=== PATIENT | male | born 1955 | race Caucasian/White ===

== ENCOUNTER 2020-06-05 12:13 | Inpatient (IN) ==
[2020-06-05] MEDS ORDERED: NS 0.9% 1000 ml BAG 1,000 ML IV ONE (12:38)
[2020-06-05 14:11] LABS: Hematocrit 41 % (42-52); Hemoglobin 13.8 g/dL (14.0-18.0); Mean Corpuscular HGB Conc 34 g/dL (31-36); Mean Corpuscular Hemoglobin 29 pg (27-31); Mean Corpuscular Volume 85 fL (80-94); Platelet Count 321 10^3/uL (150-450); Red Blood Count 4.81 10^6 /uL (4.18-5.48); Red Cell Distribution Width 14 % (10-15); White Blood Count 11.5 10^3/uL (3.5-10.8)
[2020-06-05 14:37] LABS: Albumin 3.4 g/dL (3.2-5.2); Albumin/Globulin Ratio 1.4 (1-3); BUN/Creatinine Ratio 23.9 (8-20); C Reactive Protein 18.02 mg/L (<8.01); Calcium 8.7 mg/dL (8.6-10.3); EGFR African American 223.7 (>60); EGFR Non-African American 184.9 (>60); Globulin 2.4 g/dL (2-4); Total Bilirubin 0.3 mg/dL (0.2-1.0); Total Protein 5.8 g/dL (6.4-8.9)
[2020-06-05 14:43] LABS: ABS Lymphocytes 0.8 10^3/ul (1.0-4.8); ABS Monocytes 0.3 10^3/ul (0-0.8); ABS Neutrophils 10.3 10^3/ul (1.5-7.7); Eosinophil % 0.2 %; Lymphocyte % 7.2 %
[2020-06-05 15:28] LABS: TSH Ultra Thyroid Stim Horm 1.1 mcIU/mL (0.34-5.60)
[2020-06-05] MEDS ORDERED: Dexamethasone IV 4 MG/ML VIAL 1 ml VIAL IV SLOW PU ONE (15:40)
[2020-06-05 16:01] LABS: Urine Appearance Clear; Urine Bilirubin Negative (Negative); Urine Blood Negative (Negative); Urine Color Straw; Urine Glucose Negative (Negative); Urine Ketones 1+ (Negative); Urine Nitrite Negative (Negative); Urine Protein Negative (Negative); Urine Specific Gravity 1.008 (1.010-1.030); Urine Urobilinogen Negative (Negative)
[2020-06-05 16:43] LABS: Erythrocyte Sed Rate 25 mm/Hr (0-19)
[2020-06-05 17:39] LABS: Potassium 4.2 mmol/L (3.5-5.0)
[2020-06-05] MEDS ORDERED: Ondansetron 4 mg VIAL 2 MG/ML 2 ml VIAL IV PRN (20:07)
[2020-06-05] MEDS ORDERED: Heparin 5000 UNITS/ML 1 mL VIAL SUBCUT SCH (22:00)
[2020-06-05 22:59] LABS: INR 1.08 (0.82-1.09)
[2020-06-06] MEDS: Dexamethasone IV 4 MG/ML VIAL 1 ml VIAL IV SLOW PU SCH ×3 (00:15→15:44)
[2020-06-06] MEDS: Heparin 5000 UNITS/ML 1 mL VIAL SUBCUT SCH ×3 (05:20→22:20)
[2020-06-06 05:40] LABS: ABS Lymphocytes 0.5 10^3/ul (1.0-4.8); ABS Monocytes 0.1 10^3/ul (0-0.8); ABS Neutrophils 8.7 10^3/ul (1.5-7.7); Eosinophil % 0.3 %; Hematocrit 40 % (42-52); Hemoglobin 13.5 g/dL (14.0-18.0); Lymphocyte % 5.6 %; Mean Corpuscular HGB Conc 34 g/dL (31-36); Mean Corpuscular Hemoglobin 29 pg (27-31); Mean Corpuscular Volume 85 fL (80-94); Mean Platelet Volume 7.9 fL (7.4-10.4); Nucleated Red Blood Cells % 0.1; Platelet Count 285 10^3/uL (150-450); Red Blood Count 4.67 10^6 /uL (4.18-5.48); Red Cell Distribution Width 14 % (10-15); White Blood Count 9.4 10^3/uL (3.5-10.8)
[2020-06-06 05:48] LABS: INR 1.11 (0.82-1.09)
[2020-06-06 05:57] LABS: Calcium 8.5 mg/dL (8.6-10.3); EGFR African American 248.5 (>60); EGFR Non-African American 205.4 (>60); Potassium 3.8 mmol/L (3.5-5.0)
[2020-06-06] MEDS ORDERED: Al Hydrox/Mg Hydrox/Simet LIQ 30 ML UDC PO PRN (13:30)
[2020-06-06] MEDS ORDERED: Magnesium Hydroxide LIQ 30 ML UDC PO PRN (13:31)
[2020-06-06] MEDS ORDERED: Magnesium Hydroxide LIQ 30 ML UDC ONE (13:32)
[2020-06-06] MEDS: Clotrimazole 1% CREAM 45 GM TOPICAL SCH (22:22)
[2020-06-07] MEDS: Dexamethasone IV 4 MG/ML VIAL 1 ml VIAL IV SLOW PU SCH ×3 (00:42→15:51)
[2020-06-07] MEDS: Heparin 5000 UNITS/ML 1 mL VIAL SUBCUT SCH ×3 (06:29→22:42)
[2020-06-07] MEDS: Clotrimazole 1% CREAM 45 GM TOPICAL SCH ×2 (09:39→22:46)
[2020-06-07 10:09] LABS: Hematocrit 41 % (42-52); Hemoglobin 13.7 g/dL (14.0-18.0); Mean Corpuscular HGB Conc 34 g/dL (31-36); Mean Corpuscular Hemoglobin 29 pg (27-31); Mean Corpuscular Volume 85 fL (80-94); Platelet Count 317 10^3/uL (150-450); Red Blood Count 4.77 10^6 /uL (4.18-5.48); Red Cell Distribution Width 14 % (10-15)
[2020-06-07 10:11] LABS: ABS Lymphocytes 0.7 10^3/ul (1.0-4.8); ABS Monocytes 0.4 10^3/ul (0-0.8); ABS Neutrophils 13.8 10^3/ul (1.5-7.7); Eosinophil % 0.1 %; Lymphocyte % 4.7 %
[2020-06-07 10:25] LABS: BUN/Creatinine Ratio 47.7 (8-20); Calcium 8.6 mg/dL (8.6-10.3); EGFR African American 235.5 (>60); EGFR Non-African American 194.6 (>60); Potassium 4.2 mmol/L (3.5-5.0)
[2020-06-08 05:35] LABS: Hematocrit 40 % (42-52); Hemoglobin 13.3 g/dL (14.0-18.0); Mean Corpuscular HGB Conc 34 g/dL (31-36); Mean Corpuscular Hemoglobin 29 pg (27-31); Mean Corpuscular Volume 85 fL (80-94); Mean Platelet Volume 8.4 fL (7.4-10.4); Platelet Count 340 10^3/uL (150-450); Red Blood Count 4.64 10^6 /uL (4.18-5.48); Red Cell Distribution Width 14 % (10-15); White Blood Count 14.9 10^3/uL (3.5-10.8)
[2020-06-08] MEDS: Heparin 5000 UNITS/ML 1 mL VIAL SUBCUT SCH ×3 (06:41→21:58)
[2020-06-08 09:04] LABS: ABS Lymphocytes 0.9 10^3/ul (1.0-4.8); ABS Monocytes 0.6 10^3/ul (0-0.8); ABS Neutrophils 13.4 10^3/ul (1.5-7.7)
[2020-06-08] MEDS: Clotrimazole 1% CREAM 45 GM TOPICAL SCH ×2 (10:01→21:53)
[2020-06-08] MEDS: Magnesium Hydroxide LIQ 30 ML UDC PO SCH ×2 (11:05→21:53)
[2020-06-08 17:16] LABS: Urine Appearance Cloudy; Urine Bilirubin Negative (Negative); Urine Blood 2+ (Negative); Urine Color Yellow; Urine Glucose Negative (Negative); Urine Ketones Negative (Negative); Urine Nitrite Negative (Negative); Urine Protein Negative (Negative); Urine Specific Gravity 1.023 (1.010-1.030); Urine Urobilinogen Negative (Negative)
[2020-06-08 17:27] LABS: Urine Bacteria Absent (Absent); Urine Red Blood Cell 2+(6-10/hpf) (Absent); Urine White Blood Cell Trace(0-5/hpf) (Absent)
[2020-06-09] MEDS: Heparin 5000 UNITS/ML 1 mL VIAL SUBCUT SCH ×3 (05:41→21:22)
[2020-06-09] MEDS: Clotrimazole 1% CREAM 45 GM TOPICAL SCH ×2 (11:06→21:22)
[2020-06-09] MEDS: Magnesium Hydroxide LIQ 30 ML UDC PO SCH ×2 (11:07→21:20)
[2020-06-09] MEDS ORDERED: Magnesium CITRATE LIQ 300 ML BTL PO ONE (17:54)
[2020-06-09] MEDS ORDERED: PEG 3000 GI LAVAGE 1 GALLON PO ONE (23:50)
[2020-06-10] MEDS: Heparin 5000 UNITS/ML 1 mL VIAL SUBCUT SCH (05:54)
[2020-06-10] MEDS: Clotrimazole 1% CREAM 45 GM TOPICAL SCH (08:55)
[2020-06-10] MEDS: Magnesium Hydroxide LIQ 30 ML UDC PO SCH (08:55)
[2020-06-10] MEDS ORDERED: Psyllium PAK PO SCH (09:00)
[2020-06-10 12:49] VITALS: BP 111/64
== END 2020-06-10 09:22 | DRG 552 ==
LOC: ED 12:13 → SSU 12:13
PROVIDERS: ADMIT Internal Medicine; ATTEND Internal Medicine

== ENCOUNTER 2020-06-10 13:02 | Inpatient (IN) ==
[2020-06-10] MEDS ORDERED: Lactulose 30 ml UDC PO PRN (14:39)
[2020-06-10] MEDS: Senna TAB 8.6 mg TAB PO SCH (22:40)
[2020-06-10] MEDS: Heparin 5000 UNITS/ML 1 mL VIAL SUBCUT SCH (22:42)
[2020-06-11 06:20] LABS: Albumin 3.4 g/dL (3.2-5.2); Calcium 8.3 mg/dL (8.6-10.3); Hematocrit 43 % (42-52); Hemoglobin 14.9 g/dL (14.0-18.0); Mean Corpuscular HGB Conc 35 g/dL (31-36); Mean Corpuscular Hemoglobin 29 pg (27-31); Mean Corpuscular Volume 85 fL (80-94); Mean Platelet Volume 8.2 fL (7.4-10.4); Platelet Count 306 10^3/uL (150-450); Potassium 4.5 mmol/L (3.5-5.0); Red Cell Distribution Width 14 % (10-15); Total Bilirubin 0.4 mg/dL (0.2-1.0); White Blood Count 11.7 10^3/uL (3.5-10.8)
[2020-06-11 06:26] LABS: Albumin/Globulin Ratio 1.4 (1-3); BUN/Creatinine Ratio 42.3 (8-20); EGFR African American 194.2 (>60); EGFR Non-African American 160.5 (>60); Globulin 2.5 g/dL (2-4); Total Protein 5.9 g/dL (6.4-8.9)
[2020-06-11 06:55] LABS: Platelet Morphology Large; Polychromasia 2+
[2020-06-11 06:56] LABS: ABS Basophils 0.1 10^3/ul (0-0.2); ABS Eosinophils 0.3 10^3/ul (0-0.6); ABS Lymphocytes 1.5 10^3/ul (1.0-4.8); ABS Monocytes 0.3 10^3/ul (0-0.8); ABS Neutrophils 9.5 10^3/ul (1.5-7.7); Eosinophil % 2.2 %; Lymphocyte % 13.1 %; Nucleated Red Blood Cells % 0.1
[2020-06-11] MEDS: Heparin 5000 UNITS/ML 1 mL VIAL SUBCUT SCH ×3 (08:59→21:31)
[2020-06-11] MEDS: Senna TAB 8.6 mg TAB PO SCH (21:31)
[2020-06-12] MEDS: Heparin 5000 UNITS/ML 1 mL VIAL SUBCUT SCH ×3 (06:03→20:42)
[2020-06-12] MEDS: Senna TAB 8.6 mg TAB PO SCH (20:45)
[2020-06-12] MEDS ORDERED: Nystatin TOP POWDER 15 GM BTL TOPICAL ONE (21:02)
[2020-06-13] MEDS: Heparin 5000 UNITS/ML 1 mL VIAL SUBCUT SCH ×3 (05:21→20:55)
[2020-06-13] MEDS: Nystatin TOP POWDER 15 GM BTL TOPICAL SCH ×2 (15:14→20:57)
[2020-06-13] MEDS: Senna TAB 8.6 mg TAB PO SCH (20:53)
[2020-06-14] MEDS: Heparin 5000 UNITS/ML 1 mL VIAL SUBCUT SCH ×3 (06:10→20:45)
[2020-06-14] MEDS: Nystatin TOP POWDER 15 GM BTL TOPICAL SCH ×2 (09:29→20:55)
[2020-06-14] MEDS: Senna TAB 8.6 mg TAB PO SCH (20:45)
[2020-06-15] MEDS: Heparin 5000 UNITS/ML 1 mL VIAL SUBCUT SCH ×3 (06:15→21:25)
[2020-06-15] MEDS: Nystatin TOP POWDER 15 GM BTL TOPICAL SCH ×2 (15:18→20:46)
[2020-06-15] MEDS: Magnesium Hydroxide LIQ 30 ML UDC PO PRN (17:10)
[2020-06-15] MEDS: Senna TAB 8.6 mg TAB PO SCH (20:43)
[2020-06-16] MEDS: Heparin 5000 UNITS/ML 1 mL VIAL SUBCUT SCH ×3 (05:25→20:39)
[2020-06-16] MEDS: Nystatin TOP POWDER 15 GM BTL TOPICAL SCH ×2 (12:29→20:39)
[2020-06-16] MEDS: Senna TAB 8.6 mg TAB PO SCH (20:38)
[2020-06-17] MEDS: Heparin 5000 UNITS/ML 1 mL VIAL SUBCUT SCH ×3 (05:15→21:35)
[2020-06-17] MEDS: Nystatin TOP POWDER 15 GM BTL TOPICAL SCH ×3 (10:15→20:45)
[2020-06-17] MEDS: Magnesium Hydroxide LIQ 30 ML UDC PO PRN (10:16)
[2020-06-17] MEDS: Senna TAB 8.6 mg TAB PO SCH (20:45)
[2020-06-18] MEDS: Heparin 5000 UNITS/ML 1 mL VIAL SUBCUT SCH ×3 (05:22→21:38)
[2020-06-18 06:34] LABS: Hematocrit 44 % (42-52); Hemoglobin 14.8 g/dL (14.0-18.0); Mean Corpuscular HGB Conc 34 g/dL (31-36); Mean Corpuscular Hemoglobin 29 pg (27-31); Mean Corpuscular Volume 85 fL (80-94); Mean Platelet Volume 7.3 fL (7.4-10.4); Platelet Count 329 10^3/uL (150-450); Red Blood Count 5.16 10^6 /uL (4.18-5.48); Red Cell Distribution Width 15 % (10-15); White Blood Count 10.1 10^3/uL (3.5-10.8)
[2020-06-18 06:50] LABS: Albumin 3.6 g/dL (3.2-5.2); Albumin/Globulin Ratio 1.3 (1-3); Calcium 9.3 mg/dL (8.6-10.3); EGFR African American 164.7 (>60); EGFR Non-African American 136.1 (>60); Globulin 2.7 g/dL (2-4); Potassium 4.9 mmol/L (3.5-5.0); Total Bilirubin 0.3 mg/dL (0.2-1.0); Total Protein 6.3 g/dL (6.4-8.9)
[2020-06-18 07:32] LABS: ABS Basophils 0.1 10^3/ul (0-0.2); ABS Eosinophils 0.2 10^3/ul (0-0.6); ABS Monocytes 0.7 10^3/ul (0-0.8); Eosinophil % 2.2 %; Lymphocyte % 20.1 %
[2020-06-18] MEDS: Nystatin TOP POWDER 15 GM BTL TOPICAL SCH ×2 (09:05→20:43)
[2020-06-18] MEDS: Senna TAB 8.6 mg TAB PO SCH (20:43)
[2020-06-19] MEDS: Heparin 5000 UNITS/ML 1 mL VIAL SUBCUT SCH ×3 (07:34→21:10)
[2020-06-19] MEDS: Nystatin TOP POWDER 15 GM BTL TOPICAL SCH ×2 (15:09→21:10)
[2020-06-19] MEDS: Senna TAB 8.6 mg TAB PO SCH (21:09)
[2020-06-20] MEDS: Heparin 5000 UNITS/ML 1 mL VIAL SUBCUT SCH ×3 (05:02→20:56)
[2020-06-20] MEDS: Nystatin TOP POWDER 15 GM BTL TOPICAL SCH ×2 (14:18→20:56)
[2020-06-20] MEDS: Senna TAB 8.6 mg TAB PO SCH (20:59)
[2020-06-21] MEDS: Heparin 5000 UNITS/ML 1 mL VIAL SUBCUT SCH ×3 (05:39→22:35)
[2020-06-21] MEDS: Nystatin TOP POWDER 15 GM BTL TOPICAL SCH ×2 (08:26→22:37)
[2020-06-21] MEDS: Senna TAB 8.6 mg TAB PO SCH (22:35)
[2020-06-22] MEDS: Heparin 5000 UNITS/ML 1 mL VIAL SUBCUT SCH ×2 (05:46→14:34)
[2020-06-22 05:49] VITALS: BP 110/61
[2020-06-22] MEDS: Nystatin TOP POWDER 15 GM BTL TOPICAL SCH (08:50)
== END 2020-06-22 15:00 | disposition short-term general hospital (02) | DRG 552 ==
LOC: PMRU 13:57
PROVIDERS: ADMIT Physical Medicine & Rehabilitation; ATTEND Physical Medicine & Rehabilitation

== ENCOUNTER 2020-06-22 15:40 | Inpatient (IN) ==
[2020-06-22] MEDS ORDERED: Senna TAB 8.6 mg TAB PO PRN ×2 (16:00→16:01)
[2020-06-22] MEDS ORDERED: Magnesium Hydroxide LIQ 30 ML UDC PO PRN ×2 (16:00→16:01)
[2020-06-22] MEDS: Enoxaparin 40 MG/0.4 ML SYR SUBCUT SCH (17:48)
[2020-06-22] MEDS: Lactulose 30 ml UDC PO SCH (21:20)
[2020-06-22] MEDS: Nystatin TOP POWDER 15 GM BTL TOPICAL SCH (21:20)
[2020-06-23] MEDS: Ondansetron 4 mg VIAL 2 MG/ML 2 ml VIAL IV PRN (01:56)
[2020-06-23 04:49] LABS: ABS Basophils 0.1 10^3/ul (0-0.2); ABS Eosinophils 0.4 10^3/ul (0-0.6); ABS Lymphocytes 1.8 10^3/ul (1.0-4.8); ABS Monocytes 0.6 10^3/ul (0-0.8); ABS Neutrophils 6.5 10^3/ul (1.5-7.7); Eosinophil % 4.1 %; Hematocrit 41 % (42-52); Hemoglobin 13.9 g/dL (14.0-18.0); Lymphocyte % 19.2 %; Mean Corpuscular HGB Conc 34 g/dL (31-36); Mean Corpuscular Hemoglobin 29 pg (27-31); Mean Corpuscular Volume 85 fL (80-94); Mean Platelet Volume 7.5 fL (7.4-10.4); Platelet Count 255 10^3/uL (150-450); Red Blood Count 4.78 10^6 /uL (4.18-5.48); Red Cell Distribution Width 15 % (10-15); White Blood Count 9.4 10^3/uL (3.5-10.8)
[2020-06-23 05:07] LABS: BUN/Creatinine Ratio 25.5 (8-20); Calcium 8.9 mg/dL (8.6-10.3); EGFR Non-African American 150.4 (>60); Potassium 4.6 mmol/L (3.5-5.0)
[2020-06-23] MEDS: Lactulose 30 ml UDC PO SCH ×3 (07:50→20:12)
[2020-06-23] MEDS: Nystatin TOP POWDER 15 GM BTL TOPICAL SCH ×2 (08:02→22:19)
[2020-06-23 12:27] LABS: Hematocrit 41 % (42-52); Hemoglobin 13.7 g/dL (14.0-18.0); Mean Corpuscular HGB Conc 33 g/dL (31-36); Mean Corpuscular Hemoglobin 29 pg (27-31); Mean Corpuscular Volume 85 fL (80-94); Mean Platelet Volume 7.3 fL (7.4-10.4); Platelet Count 263 10^3/uL (150-450); Red Cell Distribution Width 15 % (10-15); White Blood Count 7.5 10^3/uL (3.5-10.8)
[2020-06-23 12:43] LABS: Albumin 3.4 g/dL (3.2-5.2); Albumin/Globulin Ratio 1.4 (1-3); BUN/Creatinine Ratio 23.2 (8-20); EGFR African American 178.3 (>60); EGFR Non-African American 147.4 (>60); Globulin 2.4 g/dL (2-4); INR 1.01 (0.82-1.09); Potassium 4.3 mmol/L (3.5-5.0); Total Bilirubin 0.4 mg/dL (0.2-1.0); Total Protein 5.8 g/dL (6.4-8.9)
[2020-06-23 14:16] LABS: ABS Eosinophils 0.3 10^3/ul (0-0.6); ABS Lymphocytes 1.5 10^3/ul (1.0-4.8); ABS Monocytes 0.6 10^3/ul (0-0.8); ABS Neutrophils 5.1 10^3/ul (1.5-7.7); Eosinophil % 3.6 %; Lymphocyte % 19.9 %
[2020-06-23] MEDS: Enoxaparin 40 MG/0.4 ML SYR SUBCUT SCH (17:04)
[2020-06-24] MEDS: Lactulose 30 ml UDC PO SCH ×3 (08:55→22:04)
[2020-06-24] MEDS: Nystatin TOP POWDER 15 GM BTL TOPICAL SCH ×2 (08:55→22:45)
[2020-06-24] MEDS: Enoxaparin 40 MG/0.4 ML SYR SUBCUT SCH (17:52)
[2020-06-25] MEDS: Lactulose 30 ml UDC PO SCH ×3 (07:56→20:24)
[2020-06-25] MEDS: Nystatin TOP POWDER 15 GM BTL TOPICAL SCH ×2 (07:57→20:13)
[2020-06-25] MEDS: Enoxaparin 40 MG/0.4 ML SYR SUBCUT SCH (17:29)
[2020-06-26 05:28] LABS: Hematocrit 39 % (42-52); Hemoglobin 13.5 g/dL (14.0-18.0); Mean Corpuscular HGB Conc 34 g/dL (31-36); Mean Corpuscular Hemoglobin 29 pg (27-31); Mean Corpuscular Volume 85 fL (80-94); Mean Platelet Volume 7.2 fL (7.4-10.4); Platelet Count 227 10^3/uL (150-450); Red Blood Count 4.64 10^6 /uL (4.18-5.48); Red Cell Distribution Width 15 % (10-15); White Blood Count 6.9 10^3/uL (3.5-10.8)
[2020-06-26 05:51] LABS: BUN/Creatinine Ratio 42.3 (8-20); Calcium 8.5 mg/dL (8.6-10.3); EGFR African American 194.2 (>60); EGFR Non-African American 160.5 (>60)
[2020-06-26] MEDS: Lactated Ringers 1000 ml BAG 1,000 ML IV SCH ×2 (05:59→11:29)
[2020-06-26] MEDS ORDERED: Buffered Lidocaine 1% SYRIN 1 ml INTRADERM ONE (06:00)
[2020-06-26 06:26] LABS: ABS Basophils 0.1 10^3/ul (0-0.2); ABS Eosinophils 0.3 10^3/ul (0-0.6); ABS Lymphocytes 1.8 10^3/ul (1.0-4.8); ABS Monocytes 0.5 10^3/ul (0-0.8); ABS Neutrophils 4.2 10^3/ul (1.5-7.7); Eosinophil % 4.9 %; Lymphocyte % 25.6 %
[2020-06-26] MEDS: Lactulose 30 ml UDC PO SCH ×3 (07:16→21:19)
[2020-06-26] MEDS ORDERED: Phenylephrine IV 10 MG/ML 1 ml VIAL ONE (07:26)
[2020-06-26] MEDS ORDERED: Ondansetron 4 mg VIAL 2 MG/ML 2 ml VIAL ONE (07:26)
[2020-06-26] MEDS ORDERED: Propofol 10 MG/ML 20 ML BTL ONE ×4 (07:26→13:35)
[2020-06-26] MEDS ORDERED: Dexamethasone IV 4 MG/ML VIAL 1 ml VIAL ONE (07:26)
[2020-06-26] MEDS ORDERED: Rocuronium 50 mg VIAL 10 mg/ml 5 ml VIAL (50 mg) ONE (07:28)
[2020-06-26] MEDS ORDERED: Sevoflurane BOTTLE ONE (07:31)
[2020-06-26] MEDS: Nystatin TOP POWDER 15 GM BTL TOPICAL SCH ×2 (07:36→21:20)
[2020-06-26] MEDS ORDERED: ceFAZolin 2 GM PREMIX 2 GM/50 ML BAG ONE (11:08)
[2020-06-26] MEDS ORDERED: Succinylcholine 200 mg VIAL 20 mg/ml 10 ml VIAL (200 mg) ONE (11:16)
[2020-06-26] MEDS ORDERED: fentaNYL 250 mcg/5 ml 50 MCG/ML 5 ml VIAL (250 MCG) ONE (11:17)
[2020-06-26] MEDS ORDERED: Midazolam 2 mg/2 ml VIAL 1 mg/ml 2 ml VIAL (2 mg) ONE (11:17)
[2020-06-26] MEDS ORDERED: Remifentanil 2 MG VIAL ONE (11:26)
[2020-06-26] MEDS ORDERED: Prochlorperazine 5 mg/ml 2 ml VIAL (10 mg) IV PRN (11:30)
[2020-06-26] MEDS ORDERED: diPHENhydraMINE IV 50 MG/ML 1 ml VIAL (BENADRYL) IV PRN (11:30)
[2020-06-26] MEDS ORDERED: Naloxone 0.4 mg VIAL 0.4 mg/ml 1 ml VIAL IV PRN (11:30)
[2020-06-26] MEDS ORDERED: HYDROmorphone 1 MG/1 ML SYRINGE ONE ×2 (14:27→15:43)
[2020-06-26] MEDS: HYDROmorphone 1 MG/1 ML SYRINGE IV PRN ×5 (15:45→16:28)
[2020-06-26] MEDS ORDERED: ceFAZolin 2 GM PREMIX 2 GM/50 ML BAG IVPB ONE (16:30)
[2020-06-26 16:40] LABS: ABS Eosinophils 0.1 10^3/ul (0-0.6); ABS Monocytes 0.2 10^3/ul (0-0.8); ABS Neutrophils 8.7 10^3/ul (1.5-7.7); Eosinophil % 1.3 %; Hematocrit 39 % (42-52); Hemoglobin 13.2 g/dL (14.0-18.0); Lymphocyte % 9.6 %; Mean Corpuscular HGB Conc 34 g/dL (31-36); Mean Corpuscular Hemoglobin 29 pg (27-31); Mean Corpuscular Volume 86 fL (80-94); Mean Platelet Volume 7.1 fL (7.4-10.4); Platelet Count 240 10^3/uL (150-450); Red Blood Count 4.52 10^6 /uL (4.18-5.48); Red Cell Distribution Width 14 % (10-15)
[2020-06-26] MEDS: Albuterol 2.5mg/3 ml (0.083%) NEB.SOLN INH SCH ×2 (17:56→23:50)
[2020-06-26] MEDS: NS 0.9% 1000 ml BAG 1,000 ML IV SCH ×2 (17:58→21:41)
[2020-06-26 19:08] LABS: Urine Appearance Cloudy; Urine Bilirubin Negative (Negative); Urine Blood 1+ (Negative); Urine Color Yellow; Urine Glucose Negative (Negative); Urine Ketones 1+ (Negative); Urine Nitrite Negative (Negative); Urine Protein 1+(30 mg/dL) (Negative); Urine Specific Gravity 1.023 (1.010-1.030); Urine Urobilinogen Negative (Negative)
[2020-06-26 19:21] LABS: Urine Bacteria 1+ (Absent); Urine Red Blood Cell 3+(>10/hpf) (Absent); Urine Transitional Epithelial Present (Absent); Urine White Blood Cell 3+(>20/hpf) (Absent)
[2020-06-26] MEDS ORDERED: Lactated Ringers 1000 ml BAG 1,000 ML IV ONE (19:53)
[2020-06-26] MEDS: ceFAZolin 2 GM PREMIX 2 GM/50 ML BAG IVPB SCH (21:41)
[2020-06-27] MEDS: ceFAZolin 2 GM PREMIX 2 GM/50 ML BAG IVPB SCH ×3 (05:15→21:26)
[2020-06-27] MEDS: Lactulose 30 ml UDC PO SCH ×2 (10:24→12:44)
[2020-06-27] MEDS: Enoxaparin 40 MG/0.4 ML SYR SUBCUT SCH (10:54)
[2020-06-27] MEDS: Nystatin TOP POWDER 15 GM BTL TOPICAL SCH ×2 (10:57→21:30)
[2020-06-27 15:55] LABS: ABS Basophils 0.1 10^3/ul (0-0.2); ABS Lymphocytes 1.4 10^3/ul (1.0-4.8); ABS Monocytes 0.9 10^3/ul (0-0.8); ABS Neutrophils 8.7 10^3/ul (1.5-7.7); Eosinophil % 0.2 %; Hematocrit 33 % (42-52); Hemoglobin 11.2 g/dL (14.0-18.0); Lymphocyte % 12.5 %; Mean Corpuscular HGB Conc 34 g/dL (31-36); Mean Corpuscular Hemoglobin 29 pg (27-31); Mean Corpuscular Volume 85 fL (80-94); Mean Platelet Volume 7.6 fL (7.4-10.4); Nucleated Red Blood Cells % 0.1; Platelet Count 264 10^3/uL (150-450); Red Blood Count 3.88 10^6 /uL (4.18-5.48); Red Cell Distribution Width 15 % (10-15); White Blood Count 11.1 10^3/uL (3.5-10.8)
[2020-06-27] MEDS: Polyethylene Glycol 3350 17 GM PACKET PO SCH (21:17)
[2020-06-28] MEDS: ceFAZolin 2 GM PREMIX 2 GM/50 ML BAG IVPB SCH ×3 (05:29→21:39)
[2020-06-28 07:02] LABS: Potassium 3.9 mmol/L (3.5-5.0)
[2020-06-28] MEDS: Polyethylene Glycol 3350 17 GM PACKET PO SCH ×2 (08:29→21:45)
[2020-06-28] MEDS: Nystatin TOP POWDER 15 GM BTL TOPICAL SCH ×2 (08:30→21:47)
[2020-06-28] MEDS: Enoxaparin 40 MG/0.4 ML SYR SUBCUT SCH (08:30)
[2020-06-28 09:12] LABS: Hematocrit 32 % (42-52); Hemoglobin 10.8 g/dL (14.0-18.0); Mean Corpuscular HGB Conc 34 g/dL (31-36); Mean Corpuscular Hemoglobin 29 pg (27-31); Mean Corpuscular Volume 86 fL (80-94); Mean Platelet Volume 7.9 fL (7.4-10.4); Platelet Count 240 10^3/uL (150-450); Red Blood Count 3.69 10^6 /uL (4.18-5.48); Red Cell Distribution Width 14 % (10-15); White Blood Count 8.7 10^3/uL (3.5-10.8)
[2020-06-28 10:31] LABS: ABS Basophils 0.1 10^3/ul (0-0.2); ABS Eosinophils 0.1 10^3/ul (0-0.6); ABS Lymphocytes 1.6 10^3/ul (1.0-4.8); ABS Monocytes 0.8 10^3/ul (0-0.8); ABS Neutrophils 6.1 10^3/ul (1.5-7.7); Eosinophil % 0.8 %; Lymphocyte % 18.2 %
[2020-06-28 17:22] LABS: ABS Basophils 0.1 10^3/ul (0-0.2); ABS Eosinophils 0.1 10^3/ul (0-0.6); ABS Lymphocytes 1.7 10^3/ul (1.0-4.8); ABS Monocytes 0.9 10^3/ul (0-0.8); ABS Neutrophils 5.8 10^3/ul (1.5-7.7); Eosinophil % 1.2 %; Hematocrit 31 % (42-52); Hemoglobin 10.9 g/dL (14.0-18.0); Lymphocyte % 20.1 %; Mean Corpuscular HGB Conc 35 g/dL (31-36); Mean Corpuscular Hemoglobin 30 pg (27-31); Mean Corpuscular Volume 84 fL (80-94); Mean Platelet Volume 7.1 fL (7.4-10.4); Platelet Count 249 10^3/uL (150-450); Red Blood Count 3.69 10^6 /uL (4.18-5.48); Red Cell Distribution Width 15 % (10-15); White Blood Count 8.6 10^3/uL (3.5-10.8)
[2020-06-29 05:10] LABS: ABS Basophils 0.1 10^3/ul (0-0.2); ABS Eosinophils 0.1 10^3/ul (0-0.6); ABS Lymphocytes 1.8 10^3/ul (1.0-4.8); ABS Monocytes 0.9 10^3/ul (0-0.8); ABS Neutrophils 5.6 10^3/ul (1.5-7.7); Eosinophil % 1.5 %; Hematocrit 31 % (42-52); Hemoglobin 10.5 g/dL (14.0-18.0); Lymphocyte % 20.7 %; Mean Corpuscular HGB Conc 35 g/dL (31-36); Mean Corpuscular Hemoglobin 29 pg (27-31); Mean Corpuscular Volume 85 fL (80-94); Mean Platelet Volume 7.2 fL (7.4-10.4); Platelet Count 254 10^3/uL (150-450); Red Blood Count 3.61 10^6 /uL (4.18-5.48); Red Cell Distribution Width 15 % (10-15); White Blood Count 8.5 10^3/uL (3.5-10.8)
[2020-06-29] MEDS: ceFAZolin 2 GM PREMIX 2 GM/50 ML BAG IVPB SCH ×2 (05:23→13:59)
[2020-06-29 05:28] LABS: BUN/Creatinine Ratio 31.9 (8-20); Calcium 7.9 mg/dL (8.6-10.3); EGFR African American 218.2 (>60); EGFR Non-African American 180.4 (>60); Potassium 4.1 mmol/L (3.5-5.0)
[2020-06-29] MEDS: Enoxaparin 40 MG/0.4 ML SYR SUBCUT SCH (10:34)
[2020-06-29] MEDS: Nystatin TOP POWDER 15 GM BTL TOPICAL SCH ×2 (10:35→20:32)
[2020-06-29] MEDS: Polyethylene Glycol 3350 17 GM PACKET PO SCH ×2 (11:33→20:35)
[2020-06-30] MEDS: Enoxaparin 40 MG/0.4 ML SYR SUBCUT SCH (08:13)
[2020-06-30] MEDS: Polyethylene Glycol 3350 17 GM PACKET PO SCH (08:14)
[2020-06-30] MEDS: Nystatin TOP POWDER 15 GM BTL TOPICAL SCH ×2 (08:14→21:00)
[2020-07-01] MEDS: Polyethylene Glycol 3350 17 GM PACKET PO SCH ×3 (02:34→20:45)
[2020-07-01] MEDS: Enoxaparin 40 MG/0.4 ML SYR SUBCUT SCH (08:03)
[2020-07-01] MEDS: Nystatin TOP POWDER 15 GM BTL TOPICAL SCH ×2 (08:07→20:45)
[2020-07-02] MEDS: Polyethylene Glycol 3350 17 GM PACKET PO SCH ×2 (10:45→20:26)
[2020-07-02] MEDS: Enoxaparin 40 MG/0.4 ML SYR SUBCUT SCH (10:45)
[2020-07-02] MEDS: Nystatin TOP POWDER 15 GM BTL TOPICAL SCH ×2 (10:46→20:26)
[2020-07-02] MEDS: Ondansetron 4 mg VIAL 2 MG/ML 2 ml VIAL IV PRN (12:05)
[2020-07-03 09:56] LABS: Albumin 3.6 g/dL (3.2-5.2); Albumin/Globulin Ratio 1.2 (1-3); BUN/Creatinine Ratio 32.6 (8-20); Calcium 8.8 mg/dL (8.6-10.3); EGFR African American 241.8 (>60); EGFR Non-African American 199.9 (>60); Globulin 2.9 g/dL (2-4); Potassium 4.1 mmol/L (3.5-5.0); Total Bilirubin 0.5 mg/dL (0.2-1.0); Total Protein 6.5 g/dL (6.4-8.9)
[2020-07-03 10:21] LABS: Urine Appearance Cloudy; Urine Bilirubin Negative (Negative); Urine Blood Negative (Negative); Urine Color Yellow; Urine Glucose Negative (Negative); Urine Ketones 1+ (Negative); Urine Nitrite Negative (Negative); Urine Protein Negative (Negative); Urine Specific Gravity 1.017 (1.010-1.030); Urine Urobilinogen Negative (Negative)
[2020-07-03 10:30] LABS: ABS Eosinophils 0.1 10^3/ul (0-0.6); ABS Monocytes 0.7 10^3/ul (0-0.8); ABS Neutrophils 8.2 10^3/ul (1.5-7.7); Eosinophil % 0.5 %; Hematocrit 39 % (42-52); Hemoglobin 13.1 g/dL (14.0-18.0); Lymphocyte % 10.1 %; Mean Corpuscular HGB Conc 34 g/dL (31-36); Mean Corpuscular Hemoglobin 29 pg (27-31); Mean Corpuscular Volume 87 fL (80-94); Platelet Count 417 10^3/uL (150-450); Red Blood Count 4.49 10^6 /uL (4.18-5.48); Red Cell Distribution Width 14 % (10-15)
[2020-07-03] MEDS: Polyethylene Glycol 3350 17 GM PACKET PO SCH ×2 (10:43→21:35)
[2020-07-03] MEDS: Nystatin TOP POWDER 15 GM BTL TOPICAL SCH ×2 (10:43→21:35)
[2020-07-03 10:45] LABS: Urine Bacteria Absent (Absent); Urine Red Blood Cell 3+(>10/hpf) (Absent); Urine White Blood Cell 3+(>20/hpf) (Absent)
[2020-07-03] MEDS: Enoxaparin 40 MG/0.4 ML SYR SUBCUT SCH (10:50)
[2020-07-04] MEDS: Polyethylene Glycol 3350 17 GM PACKET PO SCH ×2 (08:21→21:21)
[2020-07-04] MEDS: Nystatin TOP POWDER 15 GM BTL TOPICAL SCH ×2 (08:24→21:21)
[2020-07-04] MEDS: Enoxaparin 40 MG/0.4 ML SYR SUBCUT SCH (08:24)
[2020-07-05 05:31] LABS: ABS Eosinophils 0.3 10^3/ul (0-0.6); ABS Lymphocytes 1.9 10^3/ul (1.0-4.8); ABS Monocytes 0.7 10^3/ul (0-0.8); ABS Neutrophils 4.3 10^3/ul (1.5-7.7); Eosinophil % 4.3 %; Hematocrit 36 % (42-52); Hemoglobin 12.4 g/dL (14.0-18.0); Lymphocyte % 26.6 %; Mean Corpuscular HGB Conc 34 g/dL (31-36); Mean Corpuscular Hemoglobin 29 pg (27-31); Mean Corpuscular Volume 84 fL (80-94); Mean Platelet Volume 6.9 fL (7.4-10.4); Platelet Count 420 10^3/uL (150-450); Red Blood Count 4.27 10^6 /uL (4.18-5.48); Red Cell Distribution Width 15 % (10-15); White Blood Count 7.3 10^3/uL (3.5-10.8)
[2020-07-05 05:53] LABS: BUN/Creatinine Ratio 37.2 (8-20); Calcium 8.9 mg/dL (8.6-10.3); EGFR African American 241.8 (>60); EGFR Non-African American 199.9 (>60); Magnesium 2.3 mg/dL (1.9-2.7); Potassium 3.7 mmol/L (3.5-5.0)
[2020-07-05] MEDS: Polyethylene Glycol 3350 17 GM PACKET PO SCH ×2 (07:57→19:51)
[2020-07-05] MEDS: Enoxaparin 40 MG/0.4 ML SYR SUBCUT SCH (07:57)
[2020-07-05] MEDS: Nystatin TOP POWDER 15 GM BTL TOPICAL SCH ×2 (07:57→19:51)
[2020-07-06] MEDS: Polyethylene Glycol 3350 17 GM PACKET PO SCH ×2 (09:41→22:19)
[2020-07-06] MEDS: Nystatin TOP POWDER 15 GM BTL TOPICAL SCH ×2 (09:41→22:21)
[2020-07-06 09:45] LABS: ABS Basophils 0.1 10^3/ul (0-0.2); ABS Eosinophils 0.2 10^3/ul (0-0.6); ABS Lymphocytes 1.9 10^3/ul (1.0-4.8); ABS Monocytes 0.6 10^3/ul (0-0.8); ABS Neutrophils 5.7 10^3/ul (1.5-7.7); Eosinophil % 2.8 %; Hematocrit 39 % (42-52); Hemoglobin 13.1 g/dL (14.0-18.0); Mean Corpuscular HGB Conc 34 g/dL (31-36); Mean Corpuscular Hemoglobin 29 pg (27-31); Mean Corpuscular Volume 86 fL (80-94); Mean Platelet Volume 6.8 fL (7.4-10.4); Nucleated Red Blood Cells % 0.1; Platelet Count 420 10^3/uL (150-450); Red Blood Count 4.51 10^6 /uL (4.18-5.48); Red Cell Distribution Width 14 % (10-15); White Blood Count 8.5 10^3/uL (3.5-10.8)
[2020-07-06] MEDS: Enoxaparin 40 MG/0.4 ML SYR SUBCUT SCH (09:45)
[2020-07-06 10:00] LABS: Calcium 8.9 mg/dL (8.6-10.3); EGFR African American 203.2 (>60); EGFR Non-African American 167.9 (>60); Potassium 3.6 mmol/L (3.5-5.0)
[2020-07-07] MEDS: Polyethylene Glycol 3350 17 GM PACKET PO SCH ×2 (11:09→20:54)
[2020-07-07] MEDS: Enoxaparin 40 MG/0.4 ML SYR SUBCUT SCH (11:09)
[2020-07-07] MEDS: Nystatin TOP POWDER 15 GM BTL TOPICAL SCH ×2 (11:10→20:54)
[2020-07-08] MEDS: Enoxaparin 40 MG/0.4 ML SYR SUBCUT SCH (10:54)
[2020-07-08] MEDS: Nystatin TOP POWDER 15 GM BTL TOPICAL SCH ×2 (10:56→21:06)
[2020-07-08] MEDS: Polyethylene Glycol 3350 17 GM PACKET PO SCH ×2 (10:56→21:06)
[2020-07-09] MEDS: Nystatin TOP POWDER 15 GM BTL TOPICAL SCH (07:44)
[2020-07-09] MEDS: Polyethylene Glycol 3350 17 GM PACKET PO SCH (07:44)
[2020-07-09] MEDS: Enoxaparin 40 MG/0.4 ML SYR SUBCUT SCH (08:07)
[2020-07-09 11:51] VITALS: BP 105/62
== END 2020-07-09 17:20 | disposition swing bed (61) | DRG 519 ==
LOC: SSU 16:08
PROVIDERS: ADMIT Student in an Organized Health Care Education/Training Program; ATTEND Pediatrics